=== PATIENT | female | born 1955 | race Caucasian/White ===

== ENCOUNTER → 2024-02-24 10:47 | Outpatient (REF) | payer OTHER, SELFPAY ==
[2024-02-24 15:09] LABS: Mumps Virus IgG Positive; Rubeola (Measles) IgG Positive; Varicella Zoster IgG (VZV) Positive
[2024-02-24 20:30] LABS: Rubella Positive
[2024-02-24 21:03] LABS: Hepatitis B Surface Antibody Positive
[2024-02-26 10:47] LABS: Quantiferon Mitogen minus NIL >10.00 IU/mL; Quantiferon NIL 0.01 IU/mL; Quantiferon Plus TB1 minus NIL 0.01 IU/mL (0.00-0.34); Quantiferon TB Gold Plus Negative (Negative)
== END ==
LOC: OHS 10:47
PROVIDERS: ATTENDING PHYSICIAN Nurse Practitioner Family
DX: Z23 Encounter for immunization (principal)
CPT/HCPCS: 36415; 86480; 86706; 86735; 86762; 86765; 86787